=== PATIENT | female | born 1990 | race Caucasian/White ===

== ENCOUNTER 2021-05-24 07:49 | Emergency (ER) | payer MEDICAID ==
[~2021-05-24] VITALS: Ht 170.2 cm; Wt 110.3 kg
[2021-05-24 13:43] LABS: BASOPHILS % (AUTO) 0.5 % (0-1); EOSINOPHILS % (AUTO) 0.1 % (0-6); HEMATOCRIT 45.6 % (35.0-45.0); HEMOGLOBIN 15.6 g/dl (12.0-16.0); LYMPHOCYTES # (AUTO) 1.4 X10'3 (1.1-4.8); LYMPHOCYTES % (AUTO) 34.5 % (21-51); MEAN CORPUSCULAR HEMOGLOBIN 33.2 PG (27.0-31.0); MEAN CORPUSCULAR HGB CONC 34.2 g/dL (33.0-36.5); MEAN CORPUSCULAR VOLUME 96.9 FL (78-98); MEAN PLATELET VOLUME 8.2 FL (7.4-10.4); MONOCYTES # (AUTO) 0.6 X10'3 (0-0.9); MONOCYTES % (AUTO) 16.2 % (2-12); NEUTROPHILS # (AUTO) 1.9 X10'3 (1.8-7.7); NEUTROPHILS % (AUTO) 48.7 % (42-75); PLATELET COUNT 219 X10'3 (140-440); RED BLOOD COUNT 4.71 X10'6 (4.20-5.60); WHITE BLOOD COUNT 3.9 X10'3 (4.5-11.0)
[2021-05-24 14:06] LABS: ALANINE AMINOTRANSFERASE 33 U/L (12-78); ALBUMIN 3.6 G/DL (3.4-5.0); ALBUMIN/GLOBULIN RATIO 0.9 (1.1-1.5); ALKALINE PHOSPHATASE 75 IU/L (46-116); ANION GAP 12 (8-16); ASPARTATE AMINO TRANSFERASE 29 U/L (10-37); BILIRUBIN,TOTAL 0.2 MG/DL (0.1-1.0); BLOOD UREA NITROGEN 7 MG/DL (7-18); CALCIUM 8.6 MG/DL (8.5-10.1); CHLORIDE 101 MMOL/L (99-107); CREATININE 0.78 MG/DL (0.40-0.90); GLUCOSE 88 MG/DL (70-104); POTASSIUM 3.3 MMOL/L (3.5-5.1); SODIUM 138 MMOL/L (135-145); TOTAL PROTEIN 7.4 G/DL (6.4-8.2); eGFR 87 ML/MIN
[2021-05-24 14:16] LABS: LARGE PLATELETS FEW; PLATELET ESTIMATE NORMAL; TOTAL CELLS COUNTED 100
[2021-05-24 15:01] LABS: CLARITY,URINE CLOUDY (Clear); COLOR,URINE YELLOW (Yellow); GLUCOSE, URINE NEGATIVE (Neg); KETONES,URINE 15 mg/dl (Neg); LEUKOCYTE ESTERASE ,URINE NEGATIVE (Neg); NITRITES, URINE NEGATIVE (Neg); OCCULT BLOOD,URINE MODERATE (Neg); PROTEIN,URINE TRACE mg/dl (Neg); UROBILINOGEN,URINE 0.2 E.U/dL (0.2-1.0)
[2021-05-24 15:04] LABS: UA COLLECTION TYPE CLN CATCH MIDSTREAM
[2021-05-24 15:52] LABS: MUCUS STRANDS MANY /LPF (Neg); SQUAMOUS EPITHELIAL CELL,UR MANY /LPF (FEW)
[2021-05-24 15:54] LABS: HYALINE CASTS 0-3 /LPF (NEGATIVE)
[2021-05-24 15:59] LABS: WBC,URINE 0-4 /HPF (0-4)
[2021-05-24 16:01] LABS: BACTERIA,URINE 3+ /HPF (Neg)
== END 2021-05-24 15:34 | disposition home or self-care (01) ==
LOC: ER 07:50
DX: M54.50 Low back pain, unspecified (principal)
CPT/HCPCS: 80053; 81001; 85007; 85025; 99283

== ENCOUNTER 2024-12-08 11:17 | Emergency (ER) | payer MEDICAID, OTHER ==
[~2024-12-08] VITALS: Ht 167.6 cm; Wt 116.7 kg
[2024-12-08 11:20] VITALS: BP 162/102; PULSE 88; RESP 20; O2SAT 99
[2024-12-08 12:12] LABS: URINE HCG POSITIVE (NEG)
--- NOTE | 2024-12-08 12:28 | Physician Documentation ---
History of Present Illness ~ Chief Complaint: See Chief Complaint Stated Complaint: TEST Time Seen by MD: 11:40 [facility] 34-year-old female requesting test as she tested positive at home. Day of Onset: Dec 08, 2024 Medication Reconciliation Allergies: Coded Allergies: No Known Allergies (Unverified , 12/08/24) Past Medical History Past Medical History: No Pertinent History Past Surgical History: no surgical history Alcohol Use: None Review of Systems All Other Systems at this time: Reviewed and Negative ROS As stated above in the HPI, otherwise all systems are reviewed and negative. Physical Exam Physical Exam Vital Signs: Temperature: 97.5, Heart Rate: 88, Respiratory Rate: 20, BP: 162/102, Pulse Oximetry: 99, Weight: 116.650 Oxygen Flow Rate: 0 Physical Exam General: Alert, no apparent distress. HEENT: PERRL, EOMI, no injection, moist mucous membranes. Neck: Full range of motion. Respiratory: Lungs clear, no respiratory distress. Chest: No accessory muscle use. Cardiovascular: Regular rate and rhythm, no murmurs. Gastrointestinal: Soft, nontender, nondistended. Bowels sounds present. Extremities: Normal range of motion, no deformity. Neurologic: Oriented x4. Psychiatric: Normal mood and affect. Skin: Normal color, warm and dry. No edema, no ecchymosis. Progress Results/Orders Results/Orders Completed Orders - [facility] [employer] Hcg, Ur Ql (12/08/24 11:27) Vital Signs 12/08/24 12/08/24 11:20 12:34 Temp 97.5 97.5 Pulse 88 Resp 20 B/P (MAP) 162/102 Pulse Ox 99 O2 Flow Rate 0 Laboratory Tests Test 12/08/24 11:35 Urine HCG, Qualitative Positive Medical Decision Making Findings HCG positive via urine Differential Dx:Considerations: Include: -complete, - incomplete, -inevitable, -missed, -threatened, Abruptio placentae, Active labor-term, Active labor-, Appendicitis, [place] contraction, Cystitis: Acute, Discomfort of , Ectopic , Ectopic preg.-ruptured, demise, Placenta previa, Pyelonephritis: Acute, Ruture of membranes, Third trimester bleeding, UTI, Vaginal bleeding, Vaginal delivery, Other Departure Disposition: 01 HOME / SELF CARE / HOMELESS Impression: Primary Impression: Condition: Stable Discharge Instructions: ABCs of Additional Instructions: Confirmation of positive test. Referrals: NO PRIMARY CARE PROVIDER (PCP) Signature Scribe Signature: Attestation: Scribed for [employer] by Cam York NP . 12/08/24 18:30 CAM CORTES NP Dec 08, 2024 12:28
[2024-12-08 12:34] VITALS: TEMP 97.5
== END 2024-12-08 12:35 | disposition home or self-care (01) ==
LOC: ER 11:18
DX: Z32.01 Encounter for pregnancy test, result positive (principal)
CPT/HCPCS: 81025; 99283